=== PATIENT | female | born 1965 | race Caucasian/White ===

== ENCOUNTER 2023-03-04 14:12 | Inpatient (IN) | payer OTHER ==
[~2023-03-04] VITALS: Ht 152.4 cm; Wt 47.6 kg
[2023-03-09] MEDS ORDERED: KETO10TA2 PO (10:26)
[2023-03-09] MEDS ORDERED: INTEGRA F CAPS1 EACH PO (10:26)
[2023-03-09] MEDS ORDERED: OXYC1TAB9 PO (10:27)
== END 2023-03-09 11:42 | disposition home or self-care (01) | DRG 743 ==
LOC: O/R 03-06 06:33 → OB/GYN 03-06 06:33 → SURH 03-06 12:45 → OB/GYN 03-09 11:42
PROVIDERS: Obstetrics & Gynecology Gynecology; ADMIT Obstetrics & Gynecology Maternal & Fetal Medicine; ATTEND Obstetrics & Gynecology Maternal & Fetal Medicine
PROC: 0UT70ZZ Resection of Bilateral Fallopian Tubes, Open Approach (ICD-10-PCS; 2023-03-06)
PROC: 0UT20ZZ Resection of Bilateral Ovaries, Open Approach (ICD-10-PCS; 2023-03-06)
PROC: 0DNW0ZZ Release Peritoneum, Open Approach (ICD-10-PCS; 2023-03-06)
PROC: 0UT90ZL Resection of Uterus, Supracervical, Open Approach (ICD-10-PCS; principal; 2023-03-06 12:45)
DX: D25.2 Subserosal leiomyoma of uterus (principal); N80.03 Adenomyosis of the uterus; Z20.822 Contact with and (suspected) exposure to COVID-19; N83.12 Corpus luteum cyst of left ovary